=== PATIENT | male | born 1980 | race American Indian/Alaskan Native ===

== ENCOUNTER 2017-12-30 05:43 | Emergency (ER) | payer MEDICAID ==
[2017-12-30 06:11] VITALS: TEMP 98.2
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
--- NOTE | 2017-12-30 07:41 | ED PDOC ---
- Laboratory Results Result Diagrams: 12/30/17 07:20 12/30/17 07:20 Interpretation Of Abn Labs: no acute - ECG ECG: Positive for: Interpreted By Me, Viewed By Me ECG Rhythm: Positive for: Sinus Rhythm O2 Sat by Pulse Oximetry: 98 (RA) Pulse Ox Interpretation: Normal - Radiology X-Ray: Read By Radiologist X-Ray Interpretation: No Acute Disease - Progress ED Course And Treament: 832: Stable. AAOx3. Pending crisis. 931: Stable. Crisis saw pt. Does not meet criteria for admit. Fu with pcp. Tolerated po. Ambulated with no issues. Medical Decision Making Medical Decision Making: Patient signed out to provider at [address] Lamar pending labs, xray and crisis evaluation. Documented by Kinza Carrasquillo acting as a scribe for Leon Pinto MD. All medical record entries made by the Scribe were at my direction and personally dictated by me. I have reviewed the chart and agree that the record accurately reflects my personal performance of the history, physical exam, medical decision making, and the department course for this patient. I have also personally directed, reviewed, and agree with the discharge instructions and disposition. Disposition - Clinical Impression Clinical Impression: Psychosis - POA Present On Arrival: None - Disposition Referrals: [facility] [Outside] - 12/31/17 Disposition: Routine/Home Disposition Time: 09:39 Condition: STABLE Additional Instructions: Return if not better in 3 days. Instructions: Acute Psychosis (DC)
[2017-12-30 07:44] LABS: BASO # 0.1 K/uL (0.0-0.2); BASO % 1.1 % (0.0-2.0); EOS # 0.2 K/uL (0.0-0.7); EOS % 3.4 % (0.0-4.0); HEMOGLOBIN 13.3 g/dL (12.0-18.0); LYMPH # 2.2 K/uL (1.0-4.3); LYMPH % 37.6 % (20.0-40.0); MEAN CELL VOLUME 81.5 fl (80.0-94.0); MEAN CORPUSCULAR HEMOGLOBIN 26.8 pg (27.0-31.0); MEAN CORPUSCULAR HGB CONC 32.9 g/dL (33.0-37.0); MEAN PLATELET VOLUME 8.7 fl (7.2-11.7); MONO # 0.4 K/uL (0.0-0.8); MONO % 7.4 % (0.0-10.0); NEUT # 2.9 K/uL (1.8-7.0); NEUT % 50.5 % (50.0-75.0); NRBC % 0.1 % (0.0-0.0); RBC 4.97 Mil/uL (4.40-5.90); RED CELL DISTRIBUTION WIDTH 15.4 % (11.5-14.5); WHITE BLOOD COUNT 5.8 K/uL (4.8-10.8)
--- NOTE | 2017-12-30 07:55 | CARD ---
APPROVED REPORT Date of service: 12/30/2017 EKG Measurement Heart [id number] <Conclusion> Sinus tachycardia Left anterior fascicular block poor R wave progression borderline IVCD Abnormal ECG
[2017-12-30 07:59] LABS: ALB/GLOB RATIO 1.4 (1.0-2.1); ALBUMIN 4.2 g/dL (3.5-5.0); ALT/SGPT 61 U/L (21-72); AST/SGOT 40 U/L (17-59); BLOOD UREA NITROGEN 18 mg/dl (9-20); CALCIUM 9.2 mg/dL (8.4-10.2); GFR AFRICAN-AMERICAN > 60; GFR NON-AFRICAN AMERICAN > 60
--- NOTE | 2017-12-30 08:26 | RAD ---
Date of service: 12/30/2017 HISTORY: chest pain COMPARISON: No prior. FINDINGS: LUNGS: No active pulmonary disease. PLEURA: No significant pleural effusion identified, no pneumothorax apparent. CARDIOVASCULAR: Normal. OSSEOUS STRUCTURES: No significant abnormalities. VISUALIZED UPPER ABDOMEN: Normal. OTHER FINDINGS: None. IMPRESSION: No active disease.
[2017-12-30 09:48] VITALS: BP 123/63; PULSE 88; RESP 19
[2017-12-31 02:47] VITALS: O2SAT 98
== END 2017-12-30 10:26 | disposition home or self-care (01) ==
LOC: H.ER 05:43
DX: F29 Unspecified psychosis not due to a substance or known physiological condition (principal); F20.9 Schizophrenia, unspecified; F31.9 Bipolar disorder, unspecified

== ENCOUNTER 2018-01-10 13:06 | Emergency (ER) | payer MEDICAID ==
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
[2018-01-10 14:19] LABS: BASO % 0.2 % (0.0-2.0); EOS # 0.2 K/uL (0.0-0.7); EOS % 3.8 % (0.0-4.0); HEMOGLOBIN 13.7 g/dL (12.0-18.0); LYMPH # 2.1 K/uL (1.0-4.3); LYMPH % 32.6 % (20.0-40.0); MEAN CELL VOLUME 81.2 fl (80.0-94.0); MEAN CORPUSCULAR HEMOGLOBIN 26.9 pg (27.0-31.0); MEAN CORPUSCULAR HGB CONC 33.1 g/dL (33.0-37.0); MEAN PLATELET VOLUME 8.3 fl (7.2-11.7); MONO # 0.4 K/uL (0.0-0.8); NEUT # 3.7 K/uL (1.8-7.0); NEUT % 57.4 % (50.0-75.0); RBC 5.09 Mil/uL (4.40-5.90); RED CELL DISTRIBUTION WIDTH 15.6 % (11.5-14.5); WHITE BLOOD COUNT 6.4 K/uL (4.8-10.8)
[2018-01-10 14:30] LABS: SQUAMOUS EPITHIAL < 1 /hpf (0-5); URINE BACTERIA RARE (<OCC); URINE BILIRUBIN NEGATIVE (NEGATIVE); URINE BLOOD NEGATIVE (NEGATIVE); URINE CLARITY SLIGHTY-CLOUDY (Clear); URINE COLOR YELLOW (YELLOW); URINE GLUCOSE (UA) NEG (Normal); URINE LEUKOCYTE ESTERASE NEG Leu/uL (Negative); URINE PROTEIN NEGATIVE (NEGATIVE)
--- NOTE | 2018-01-10 14:32 | RAD ---
Date of service: 01/10/2018 HISTORY: clearance COMPARISON: 12/30/2017. FINDINGS: LUNGS: No active pulmonary disease. PLEURA: No significant pleural effusion identified, no pneumothorax apparent. CARDIOVASCULAR: Normal. OSSEOUS STRUCTURES: No significant abnormalities. VISUALIZED UPPER ABDOMEN: Normal. OTHER FINDINGS: None. IMPRESSION: No active disease. No significant interval change compared to the prior examination(s).
[2018-01-10 14:37] LABS: ALB/GLOB RATIO 1.4 (1.0-2.1); ALBUMIN 4.6 g/dL (3.5-5.0); ALT/SGPT 56 U/L (21-72); AST/SGOT 31 U/L (17-59); BLOOD UREA NITROGEN 13 mg/dl (9-20); CALCIUM 9.4 mg/dL (8.4-10.2); GFR AFRICAN-AMERICAN > 60; GFR NON-AFRICAN AMERICAN > 60
[2018-01-10 14:48] LABS: BARBITURATES, UR NEGATIVE (NEGATIVE); BENZODIAZEPINES, UR NEGATIVE (NEGATIVE); OPIATES, UR NEGATIVE (NEGATIVE); PHENCYCLIDINE, UR POSITIVE (NEGATIVE)
[2018-01-10 16:24] VITALS: BP 130/80; PULSE 81; RESP 18; TEMP 98
[2018-01-10 16:53] VITALS: O2SAT 98
--- NOTE | 2018-01-10 18:51 | CARD ---
APPROVED REPORT Date of service: 01/10/2018 <Conclusion> Normal sinus rhythm Left axis deviation Abnormal ECG
== END 2018-01-10 16:23 | disposition home or self-care (01) ==
LOC: H.ER 13:06
DX: F19.10 Other psychoactive substance abuse, uncomplicated (principal); R42 Dizziness and giddiness; F20.9 Schizophrenia, unspecified; F31.9 Bipolar disorder, unspecified

== ENCOUNTER 2018-01-11 17:18 | Emergency (ER) | payer MEDICAID ==
[2018-01-11 17:27] VITALS: RESP 18
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
[2018-01-11 20:08] LABS: HEMOGLOBIN 13.2 g/dL (12.0-18.0); MEAN CELL VOLUME 81.7 fl (80.0-94.0); MEAN CORPUSCULAR HEMOGLOBIN 26.7 pg (27.0-31.0); MEAN CORPUSCULAR HGB CONC 32.7 g/dL (33.0-37.0); RBC 4.93 Mil/uL (4.40-5.90); RED CELL DISTRIBUTION WIDTH 15.5 % (11.5-14.5)
[2018-01-11 20:32] LABS: ALB/GLOB RATIO 1.5 (1.0-2.1); ALBUMIN 4.3 g/dL (3.5-5.0); ALT/SGPT 54 U/L (21-72); AST/SGOT 30 U/L (17-59); BLOOD UREA NITROGEN 17 mg/dl (9-20); CALCIUM 9.2 mg/dL (8.4-10.2); GFR AFRICAN-AMERICAN > 60; GFR NON-AFRICAN AMERICAN > 60
[2018-01-11 20:33] LABS: SQUAMOUS EPITHIAL < 1 /hpf (0-5); URINE BILIRUBIN NEGATIVE (NEGATIVE); URINE BLOOD NEGATIVE (NEGATIVE); URINE CLARITY SLIGHTY-CLOUDY (Clear); URINE COLOR YELLOW (YELLOW); URINE GLUCOSE (UA) NEG (Normal); URINE LEUKOCYTE ESTERASE NEG Leu/uL (Negative); URINE PROTEIN NEGATIVE (NEGATIVE)
[2018-01-11 20:49] LABS: BARBITURATES, UR NEGATIVE (NEGATIVE); BENZODIAZEPINES, UR NEGATIVE (NEGATIVE); OPIATES, UR NEGATIVE (NEGATIVE); PHENCYCLIDINE, UR POSITIVE (NEGATIVE)
[2018-01-11 21:12] LABS: B-TYPE NATRIURETIC PEPTIDE < 11.1 pg/ml (0-450)
--- NOTE | 2018-01-12 00:26 | ED PDOC ---
- Laboratory Results Result Diagrams: 01/11/18 20:06 01/11/18 20:06 - ECG O2 Sat by Pulse Oximetry: 98 (RA) Pulse Ox Interpretation: Normal Medical Decision Making Medical Decision Making: Time: 0000 -- Patient endorsed to me by Dr. Oliveros, pending [facility] evaluation and final medical clearance. 0325 Patient has been evaluated by [facility] and deemed not appropriate for involuntary admission. Patient is stable for discharge per Dr Zhong. Scribe Attestation: Documented by Jaye Gray acting as a scribe for Dr. Jayjay Cho MD. Provider Scribe Attestation: All medical record entries made by the Scribe were at my direction and personally dictated by me. I have reviewed the chart and agree that the record accurately reflects my personal performance of the history, physical exam, medical decision making, and the department course for this patient. I have also personally directed, reviewed, and agree with the discharge instructions and disposition. Disposition - Clinical Impression Clinical Impression: PCP (phencyclidine) abuse, Encounter for psychiatric assessment, Schizophrenia - POA Present On Arrival: None - Disposition Referrals: [facility] [Outside] Disposition: Routine/Home Disposition Time: 03:27 Condition: GOOD Additional Instructions: Follow up with [facility] psych clinic. Instructions: Schizophrenia, Drug Abuse and Drug Addiction (DC)
[2018-01-12 04:09] VITALS: BP 98/58; PULSE 76; TEMP 97.8; O2SAT 100
--- NOTE | 2018-01-12 07:39 | CARD ---
APPROVED REPORT Date of service: 01/11/2018 <Conclusion> Normal sinus rhythm Rightward axis T wave abnormality, consider inferior ischemia Prolonged QT Abnormal ECG
--- NOTE | 2018-01-12 16:40 | RAD ---
Date of service: 01/11/2018 HISTORY: [facility] evaluation COMPARISON: 01/10/2018 FINDINGS: LUNGS: No active pulmonary disease. PLEURA: No significant pleural effusion identified, no pneumothorax apparent. CARDIOVASCULAR: Normal. OSSEOUS STRUCTURES: No significant abnormalities. VISUALIZED UPPER ABDOMEN: Normal. OTHER FINDINGS: None. IMPRESSION: No active disease.
== END 2018-01-12 04:10 | disposition home or self-care (01) ==
LOC: H.ER 17:18
DX: F20.9 Schizophrenia, unspecified (principal); F16.10 Hallucinogen abuse, uncomplicated; F31.9 Bipolar disorder, unspecified

== ENCOUNTER 2018-05-02 11:30 | Emergency (ER) | payer SELFPAY ==
[2018-05-02 11:55] VITALS: BP 142/97; PULSE 72; TEMP 97
[2018-05-02 11:56] VITALS: BMI 34.9
[2018-05-02 12:01] VITALS: O2SAT 98
--- NOTE | 2018-05-02 12:40 | ED PDOC ---
HPI: General Adult Time Seen by Provider: 05/02/18 12:10 Chief Complaint (Nursing): ENT Problem Chief Complaint (Provider): right ear pain History Per: Patient History/Exam Limitations: no limitations Onset/Duration Of Symptoms: Hrs (since this morning) Current Symptoms Are (Timing): Still Present Additional Complaint(s): 37 year old male presents to the ED for evaluation of pain to right ear. Patient was using a q-tip this morning in right ear and started to bleed. He is not sure of a piece of cotton from q-tip is in his ear. He presents with mild pain and muffled hearing. Left ear unaffected. PMD: does not have PMD Past Medical History Reviewed: Historical Data, Nursing Documentation, Vital Signs Vital Signs: Last Vital Signs Temp 97 F L 05/02/18 11:54 Pulse 72 05/02/18 11:54 Resp BP 142/97 H 05/02/18 11:54 Pulse Ox 98 05/02/18 11:58 - Medical History PMH: Bipolar Disorder, Schizophrenia - Surgical History Surgical History: Hernia Repair - Family History Family History: States: No Known Family Hx - Living Arrangements Living Arrangements: With Family - Social History Current smoker - smoking cessation education provided: Yes (light) Alcohol: Social Drugs: Denies - Home Medications Home Medications: Ambulatory Orders Medication Instructions Recorded Ibuprofen [Motrin Tab] 800 mg PO Q8 PRN #20 tab 05/02/18 Neomycin/Polymyxin/Hydrocort 4 drop TOP BID #1 bottle 05/02/18 [Cortisporin Otic Soln] - Allergies Allergies/Adverse Reactions: Allergies Allergy/AdvReac Type Severity Reaction Status Date / Time No Known Allergies Allergy Verified 01/10/18 13:07 Review of Systems ROS Statement: Except As Marked, All Systems Reviewed And Found Negative Constitutional: Negative for: Fever ENT: Positive for: Ear Pain (right ear pain) Physical Exam - Reviewed Nursing Documentation Reviewed: Yes Vital Signs Reviewed: Yes - Physical Exam Appears: Positive for: No Acute Distress Head Exam: Positive for: ATRAUMATIC, NORMOCEPHALIC Skin: Positive for: Normal Color. Negative for: Rash Eye Exam: Positive for: Normal appearance ENT: Positive for: TM Is/Are (right TM: moderate blood noted to right auditory canal with perforation to TM, no obvious foreign body is visualized. ) Cardiovascular/Chest: Positive for: Regular Rate, Rhythm Respiratory: Positive for: Normal Breath Sounds Extremity: Positive for: Normal ROM Neurologic/Psych: Positive for: Alert, Oriented (x3) - ECG O2 Sat by Pulse Oximetry: 98 (RA) Pulse Ox Interpretation: Normal Medical Decision Making Medical Decision Making: Time: 1244 Initial Impression: 37 year old male with right TM rupture Initial Plan: --Ibuprofen 600mg PO Procedure Note: Using sterile cotton swab, excess blood from right AC was cleared, TM noted to be ruptured, no foreign body noted. Procedure was tolerate d well by patient. --Patient to be discharged with prescriptions for cortisporin otic drops and motrin and a referral to an ENT specialist for further evalution and follow up. All questions answered at this time. Patient verbalized understanding of the need for close follow up. Scribe Attestation: Documented by Fouzia Coulter, acting as a scribe for Yomaira Farmer PA-C Provider Scribe Attestation: All medical record entries made by the Scribe were at my direction and personally dictated by me. I have reviewed the chart and agree that the record accurately reflects my personal performance of the history, physical exam, medical decision making, and the department course for this patient. I have also personally directed, reviewed, and agree with the discharge instructions and disposition. Disposition - Clinical Impression Clinical Impression: Tympanic membrane rupture - Patient ED Disposition Is Patient to be Admitted: No Counseled Patient/Family Regarding: Diagnosis, Need For Followup, Rx Given - Disposition Referrals: Jose Fuller MD [Staff Provider] - Disposition: Routine/Home Disposition Time: 12:50 Condition: STABLE Additional Instructions: Take rx meds as directed. Do not use q-tips and do not put anything in your ear. You must follow up with ear, nose and throat specialist in 2-3 days. Call referral doctor today to make an appointment. Prescriptions: Ibuprofen [Motrin Tab] 800 mg PO Q8 PRN #20 tab PRN Reason: Pain, Moderate (4-7) Neomycin/Polymyxin/Hydrocort [Cortisporin Otic Soln] 4 drop TOP BID #1 bottle Instructions: Ruptured Eardrum (DC) Forms: [employer] (N[place]ien)
== END 2018-05-02 12:59 | disposition home or self-care (01) ==
LOC: H.ER 11:30
DX: H72.91 Unspecified perforation of tympanic membrane, right ear (principal)

== ENCOUNTER 2018-06-24 22:20 | Emergency (ER) | payer SELFPAY ==
[2018-06-24 22:27] VITALS: BMI 33.9
--- NOTE | 2018-06-24 22:42 | ED PDOC ---
HPI: Psych/Substance Abuse Time Seen by Provider: 06/24/18 22:20 Chief Complaint (Nursing): Substance Abuse Chief Complaint (Provider): Substance Abuse ED Caveat: Uncooperative History Per: EMS History/Exam Limitations: intoxication Onset/Duration Of Symptoms: Unknown Current Symptoms Are (Timing): Still Present Suicide/Self Injury Attempted (Context): None Modifying Factor(s): Other (PCP) Additional Complaint(s): 37 y/o male with a history of substance (PCP) abuse and schizophrenia brought in by PD for agitated behavior. Patient known to ER staff for frequent visit. Patient very violent and aggressive to ER staff upon arrival. Patient initially placed on 1-1 for safety, however needed to be restrained on arrival for safety of self and ER staff. trying to spit and bite staff. Medications to relieve agitation given as well. PMD: none Past Medical History Reviewed: Historical Data, Nursing Documentation, Vital Signs - Medical History PMH: Bipolar Disorder, Schizophrenia Denies: Diabetes, Hepatitis, HIV, HTN, Seizures, Sexually Transmitted Disease - Surgical History Surgical History: Hernia Repair - Family History Family History: States: Unknown Family Hx - Social History Drugs: Other (PCP) - Immunization History Hx Tetanus Toxoid Vaccination: No Hx Influenza Vaccination: No Hx Pneumococcal Vaccination: No - Home Medications Home Medications: Ambulatory Orders Medication Instructions Recorded Ibuprofen [Motrin Tab] 800 mg PO Q8 PRN #20 tab 05/02/18 Neomycin/Polymyxin/Hydrocort 4 drop TOP BID #1 bottle 05/02/18 [Cortisporin Otic Soln] - Allergies Allergies/Adverse Reactions: Allergies Allergy/AdvReac Type Severity Reaction Status Date / Time No Known Allergies Allergy Verified 06/24/18 22:31 Review of Systems Review Of Systems: ROS cannot be obtained secondary to pt's inabilty to answer questions. Physical Exam - Reviewed Nursing Documentation Reviewed: Yes Vital Signs Reviewed: Yes - Physical Exam Appears: Positive for: No Acute Distress (Agitated) Head Exam: Positive for: ATRAUMATIC, NORMOCEPHALIC Skin: Positive for: Normal Color, Warm, Dry Eye Exam: Positive for: Normal appearance, EOMI, PERRL Neck: Positive for: Normal, Painless ROM, Supple Cardiovascular/Chest: Positive for: Regular Rate, Rhythm. Negative for: Murmur Respiratory: Positive for: Normal Breath Sounds. Negative for: Wheezing Gastrointestinal/Abdominal: Positive for: Normal Exam, Soft. Negative for: Tenderness Back: Positive for: Normal Inspection. Negative for: L CVA Tenderness, R CVA Tenderness Extremity: Positive for: Normal ROM. Negative for: Pedal Edema, Swelling Neurologic/Psych: Positive for: Alert (but not coherent). Negative for: Oriented - Laboratory Results Result Diagrams: 06/24/18 23:45 06/24/18 23:45 Medical Decision Making Medical Decision Making: Time: 2231 Plan: abnormal behavior, requiring sedation and restraint upon arrival for safety -- Acetaminophen -- Alcohol Serum -- BMP -- Urine Drug Screen -- Salicylate -- CBC with Differentials -- Ativan 2 mg IM -- Haldol 5 mg IM -- Restraints -- Urinalysis 0334 Labs reviewed and significant for PCP and marijuana. pt resting comfortably in bed, airway intact, vitals stable 0700 Patient is signed out to Dr. Cho, pending sobriety and crisis evaluation. Scribe Attestation: Documented by Jaye Gray, acting as a scribe for Prieto Lamar MD Provider Scribe Attestation: All medical record entries made by the Scribe were at my direction and personally dictated by me. I have reviewed the chart and agree that the record accurately reflects my personal performance of the history, physical exam, medical decision making, and the department course for this patient. I have also personally directed, reviewed, and agree with the discharge instructions and disposition. Disposition - Clinical Impression Clinical Impression: Substance abuse - Patient ED Disposition Is Patient to be Admitted: Transfer of Care - Disposition Referrals: [facility] [Outside] Disposition: Transfer of Care Disposition Time: 07:00 Condition: GOOD Additional Instructions: CASSIE CASTLE, thank you for letting us take care of you today. Your provider was Jayjay Cho MD and you were treated for POSS SUBSTANCE ABUSE. The emergency medical care you received today was directed at your acute symptoms. If you were prescribed any medication, please fill it and take as directed. It may take several days for your symptoms to resolve. Return to the Emergency Department if your symptoms worsen, do not improve, or if you have any other problems. Please contact your doctor or call one of the physicians/clinics you have been referred to that are listed on the Patient Visit Information form that is included in your discharge packet. Bring any paperwork you were given at discharge with you along with any medications you are taking to your follow up visit. Our treatment cannot replace ongoing medical care by a primary care provider outside of the emergency department. Thank you for allowing the [facility] team to be part of your care today. If you had an X-Ray or CT scan: A Radiologist will review the ED reading if any change in treatment is needed we will contact you. If you had a blood, urine, or wound culture: It will take several days for the results, if any change in treatment is needed we will contact you. If you had an STI test: It will take 48 hours for the results. Please call after 1 week if you have not heard back. Instructions: Polysubstance Abuse Patient Signed Over To: Jayjay Cho
[2018-06-25 00:03] LABS: BASO # 0.1 K/uL (0.0-0.2); BASO % 0.9 % (0.0-2.0); EOS # 0.1 K/uL (0.0-0.7); HEMOGLOBIN 12.3 g/dL (12.0-18.0); MEAN CELL VOLUME 83.2 fl (80.0-94.0); MEAN CORPUSCULAR HEMOGLOBIN 27.1 pg (27.0-31.0); MEAN CORPUSCULAR HGB CONC 32.6 g/dL (33.0-37.0); MEAN PLATELET VOLUME 8.1 fl (7.2-11.7); MONO # 0.6 K/uL (0.0-0.8); MONO % 5.7 % (0.0-10.0); NEUT % 82.4 % (50.0-75.0); RBC 4.55 Mil/uL (4.40-5.90); RED CELL DISTRIBUTION WIDTH 15.3 % (11.5-14.5); WHITE BLOOD COUNT 9.8 K/uL (4.8-10.8)
[2018-06-25 00:12] LABS: ACETAMINOPHEN < 10.0 ug/ml (10.0-30.0); SALICYLATE < 1.0 mg/dl
[2018-06-25 00:20] LABS: BLOOD UREA NITROGEN 15 mg/dl (9-20); CALCIUM 8.9 mg/dL (8.4-10.2); GFR NON-AFRICAN AMERICAN > 60
[2018-06-25 03:26] LABS: BARBITURATES, UR NEGATIVE (NEGATIVE); BENZODIAZEPINES, UR NEGATIVE (NEGATIVE); OPIATES, UR NEGATIVE (NEGATIVE); PHENCYCLIDINE, UR POSITIVE (NEGATIVE)
[2018-06-25 03:27] LABS: URINE BILIRUBIN NEGATIVE (NEGATIVE); URINE BLOOD NEGATIVE (NEGATIVE); URINE CLARITY SLIGHTY-CLOUDY (Clear); URINE COLOR YELLOW (YELLOW); URINE GLUCOSE (UA) NEG (NEGATIVE); URINE LEUKOCYTE ESTERASE NEG Leu/uL (Negative); URINE PROTEIN 30 mg/dL (NEGATIVE)
--- NOTE | 2018-06-25 07:20 | ED PDOC ---
- Laboratory Results Result Diagrams: 06/24/18 23:45 06/24/18 23:45 Lab Results: Urine Color Yellow (YELLOW) 06/25/18 02:30 Urine Clarity Slighty-cloudy (Clear) 06/25/18 02:30 Urine pH 5.0 (5.0-8.0) 06/25/18 02:30 Ur Specific [place] 1.026 (1.003-1.030) 06/25/18 02:30 Urine Protein 30 mg/dL (NEGATIVE) 06/25/18 02:30 Urine Glucose (UA) Neg mg/dL (NEGATIVE) 06/25/18 02:30 Urine Ketones Trace mg/dL (NEGATIVE) 06/25/18 02:30 Urine Blood Negative (NEGATIVE) 06/25/18 02:30 Urine Nitrate Negative (NEGATIVE) 06/25/18 02:30 Urine Bilirubin Negative (NEGATIVE) 06/25/18 02:30 Urine Urobilinogen 4.0 mg/dL (0.2-1.0) 06/25/18 02:30 Ur Leukocyte Esterase Neg Bassem/uL (Negative) 06/25/18 02:30 Urine RBC (Auto) 3 /hpf (0-3) 06/25/18 02:30 Urine Microscopic WBC 6 /hpf (0-5) H 06/25/18 02:30 Hyaline Casts 11-20 /hpf (0-2) H 06/25/18 02:30 - ECG O2 Sat by Pulse Oximetry: 96 (RA) Pulse Ox Interpretation: Normal - Progress Re-evaluation Time: 07:58 Condition: Re-examined, Improved Medical Decision Making Medical Decision Making: Time: [address] Cho by Dr. Lamar, pending sobriety and crisis evaluation. Time: 0758 Upon crisis reevaluation, patient diagnosed with substance abuse according to Dr. Narayanan and patient will be discharged Upon provider reevaluation patient is feeling better, is medically stable, and requires no further treatment in the ED at this time. Patient will be discharged. Counseling was provided and all questions were answered regarding diagnosis and need for follow up with [facility]. There is agreement to discharge plan. Return if symptoms persist or worsen. Scribe Attestation: Documented by Basilio Garza acting as a scribe for Jayjay Cho MD Provider Scribe Attestation: All medical record entries made by the Scribe were at my direction and personally dictated by me. I have reviewed the chart and agree that the record accurately reflects my personal performance of the history, physical exam, medical decision making, and the department course for this patient. I have also personally directed, reviewed, and agree with the discharge instructions and disposition. Disposition Doctor Will See Patient In The: Office Counseled Patient/Family Regarding: Studies Performed, Diagnosis, Need For Followup - Clinical Impression Clinical Impression: Substance abuse - POA Present On Arrival: None - Disposition Referrals: [facility] [Outside] Disposition: Routine/Home Disposition Time: 07:58 Additional Instructions: CASSIE CASTLE, thank you for letting us take care of you today. Your provider was Jayjay Cho MD and you were treated for POSS SUBSTANCE ABUSE. The emergency medical care you received today was directed at your acute symptoms. If you were prescribed any medication, please fill it and take as directed. It may take several days for your symptoms to resolve. Return to the Emergency Department if your symptoms worsen, do not improve, or if you have any other problems. Please contact your doctor or call one of the physicians/clinics you have been referred to that are listed on the Patient Visit Information form that is included in your discharge packet. Bring any paperwork you were given at discharge with you along with any medications you are taking to your follow up visit. Our treatment cannot replace ongoing medical care by a primary care provider outside of the emergency department. Thank you for allowing the [facility] [employer] team to be part of your care today. If you had an X-Ray or CT scan: A Radiologist will review the ED reading if any change in treatment is needed we will contact you. If you had a blood, urine, or wound culture: It will take several days for the results, if any change in treatment is needed we will contact you. If you had an STI test: It will take 48 hours for the results. Please call after 1 week if you have not heard back. Instructions: Polysubstance Abuse
[2018-06-25 07:28] VITALS: RESP 16; TEMP 98.3
[2018-06-25 08:13] VITALS: BP 126/82; PULSE 92
[2018-06-25 08:44] VITALS: O2SAT 96
== END 2018-06-25 08:47 | disposition home or self-care (01) ==
LOC: H.ER 22:20
DX: F19.10 Other psychoactive substance abuse, uncomplicated (principal); Z86.59 Personal history of other mental and behavioral disorders; Z00.8 Encounter for other general examination
CPT/HCPCS: 80048; 81003; 85025; 96372; 99285; G0480; J1630; J2060

== ENCOUNTER 2018-10-02 21:36 | Emergency (ER) | payer MEDICAID ==
[2018-10-02 21:46] VITALS: BMI 27.2
[2018-10-02 21:51] VITALS: BP 127/82; PULSE 99; RESP 16; TEMP 98.8; O2SAT 99
--- NOTE | 2018-10-02 22:25 | ED PDOC ---
HPI: Psych/Substance Abuse Time Seen by Provider: 10/02/18 22:23 Chief Complaint (Nursing): Psychiatric Evaluation Chief Complaint (Provider): bizarre behavior History Per: Patient (37 y/o male brought to ED for evaluation for bizarre behavior. Patient denies any drug use. Requests klonopin rx. Was brought to ED by police when he asked them to help him with opening waterbottle. Denies any SI/HI. Does not want to be seen by psych.) Past Medical History Reviewed: Historical Data, Nursing Documentation, Vital Signs Vital Signs: Last Vital Signs Temp 98.8 F 10/02/18 21:46 Pulse 99 H 10/02/18 21:46 Resp 16 10/02/18 21:46 BP 127/82 10/02/18 21:46 Pulse Ox 99 10/02/18 21:46 Primary Care Provider: Procedure,Nonphys - Family History Family History: States: No Known Family Hx - Home Medications Home Medications: Ambulatory Orders Medication Instructions Recorded Unobtainable 09/25/18 - Allergies Allergies/Adverse Reactions: Allergies Allergy/AdvReac Type Severity Reaction Status Date / Time No Known Allergies Allergy Unverified 09/25/18 02:53 Review of Systems ROS Statement: Except As Marked, All Systems Reviewed And Found Negative Physical Exam - Reviewed Nursing Documentation Reviewed: Yes Vital Signs Reviewed: Yes - Physical Exam Appears: Positive for: Well, Non-toxic, No Acute Distress Head Exam: Positive for: ATRAUMATIC, NORMAL INSPECTION, NORMOCEPHALIC Skin: Positive for: Normal Color, Warm, DRY Eye Exam: Positive for: EOMI, Normal appearance, PERRL ENT: Positive for: Normal ENT Inspection Neck: Positive for: Normal, Painless ROM Cardiovascular/Chest: Positive for: Regular Rate, Rhythm Respiratory: Positive for: CNT, Normal Breath Sounds Gastrointestinal/Abdominal: Positive for: Normal Exam, Soft Back: Positive for: Normal Inspection Extremity: Positive for: Normal ROM Neurological/Psych: Positive for: Awake, Alert, Normal Tone - ECG O2 Sat by Pulse Oximetry: 99 - Progress ED Course And Treament: Patient calm and cooperative in ED, working on his crossword puzzle Disposition - Clinical Impression Clinical Impression: Medication refill - Patient ED Disposition Is Patient to be Admitted: No - Disposition Referrals: [facility] [Outside] Disposition: Routine/Home Disposition Time: 22:26 Condition: FAIR Instructions: Anxiety, Adult (DC)
[2018-10-03 00:03] LABS: BARBITURATES, UR NEGATIVE (NEGATIVE); BENZODIAZEPINES, UR NEGATIVE (NEGATIVE); OPIATES, UR NEGATIVE (NEGATIVE); PHENCYCLIDINE, UR POSITIVE (NEGATIVE)
== END 2018-10-02 22:55 | disposition home or self-care (01) ==
LOC: H.ER 21:36 → MERGE 21:36 → H.ER 22:55
DX: Z76.0 Encounter for issue of repeat prescription (principal); Z86.59 Personal history of other mental and behavioral disorders